=== PATIENT | female | born 1995 | race Caucasian/White ===

== ENCOUNTER 2016-11-23 11:42 | Inpatient (IN) | payer OTHER ==
[~2016-11-23 11:42] MED LIST: HYDR-3133 PO; LEXA20TA PO; LORA.5 PO
[2016-11-23 12:20] VITALS: BP 136/83; PULSE 79; RESP 18; TEMP 98; O2SAT 98
[2016-11-23 14:09] LABS: AUTOMATED NEUTROPHIL # 3.5 TH/MM3 (1.8-7.7); BASOPHIL % 0.5 % (0.0-2.0); EOSINOPHIL % 0.5 % (0.0-4.0); HEMATOCRIT 36.8 % (35.0-46.0); HEMO FLAGS DIFF FINAL; LYMPHOCYTE # 2.9 TH/MM3 (1.0-4.8); MEAN CELL VOLUME 91.1 FL (80.0-100.0); MEAN CORPUSCULAR HEMOGLOBIN 31.1 PG (27.0-34.0); MEAN CORPUSCULAR HGB CONC 34.1 % (32.0-36.0); MONO % 11.2 % (0.0-8.0); NEUT % 47.8 % (16.0-70.0); PLATELET COUNT 173 TH/MM3 (150-450); RED BLOOD COUNT 4.04 MIL/MM3 (4.00-5.30); RED CELL DISTRIBUTION WIDTH 12.9 % (11.6-17.2); WHITE BLOOD COUNT 7.3 TH/MM3 (4.0-11.0)
[2016-11-23 14:14] LABS: AMPHETAMINE, URINE NEG (NEG); BARBITURATES, URINE NEG (NEG); COCAINE, URINE NEG (NEG)
[2016-11-23 14:21] VITALS: BP 130/80; PULSE 75; RESP 18; O2SAT 100
[2016-11-23 14:24] LABS: ANION GAP 6 MEQ/L (5-15); BICARBONATE 27.6 MEQ/L (21.0-32.0); BLOOD UREA NITROGEN 12 MG/DL (7-18); CHLORIDE 104 MEQ/L (98-107); GLOMERULAR FILTRATION RATE 112 ML/MIN (>89); POTASSIUM 3.6 MEQ/L (3.5-5.1); SODIUM (NA) 138 MEQ/L (136-145)
[2016-11-23 16:50] LABS: ACETAMINOPHEN LESS THAN 2.0 MCG/ML (10.0-30.0)
--- NOTE | 2016-11-23 17:06 | PD ---
HPI Chief Complaint: Psychiatric Symptoms Time Seen by Provider: 16:15 Travel History International Travel<30 days: No Contact w/Intl Traveler<30days: No Traveled to known affect area: No History of Present Illness HPI Patient is a 20-year-old female with a history of bipolar disorder brought in on a [place] act. Per the report she is been having some suicidal thoughts the last 2-3 days. These are brief and fleeting. She denies any plan or attempts. She denies any visual or auditory hallucinations. She has had these needs for sleep over the last 2-3 days consistent with prior episodes of ivji. Depression is also somewhat worsened. She denies any acute medical problems this time. She denies alcohol tobacco and illicit drug use. She denies current . PFSH Past Medical History Arthritis: No Asthma: No Autoimmune Disease: No Bipolar Disorder: Yes Anxiety: Yes Depression: No Heart Rhythm Problems: No Cancer: No Cardiovascular Problems: No High Cholesterol: No Chemotherapy: No Chest Pain: No Congestive Heart Failure: No COPD: No Cerebrovascular Accident: No Diabetes: No Diminished Hearing: No Endocrine: No GERD: No Genitourinary: No Headaches: Yes (HX OF MIGRAINES) Hiatal Hernia: No Immune Disorder: No Kidney Stones: No Musculoskeletal: No Neurologic: No Psychiatric: No Reproductive: No Respiratory: No Immunizations Current: Yes Migraines: Yes Radiation Therapy: No Renal Failure: No Seizures: No Sickle Cell Disease: No Sleep Apnea: No Thyroid Disease: No Ulcer: No ?: Unknown Menopausal: Yes : 0 Past Surgical History Abdominal Surgery: No AICD: No Arteriovenous Shunt: No Cardiac Surgery: No Ear Surgery: No Endocrine Surgery: No Eye Surgery: No Genitourinary Surgery: No Gynecologic Surgery: No Insulin Pump: No Joint Replacement: No Oral Surgery: No Pacemaker: No Thoracic Surgery: No Social History Alcohol Use: Yes (occasionally) Tobacco Use: No Substance Use: No Allergies-Medications (Allergen,Severity, Reaction): Coded Allergies: No Known Allergies (Unverified , 05/09/16) Reported Meds & Prescriptions Reported Meds & Active Scripts Active Lorazepam 0.5 Mg Tab 0.5 Mg PO HS Reported Atarax (Hydroxyzine HCl) 25 Mg Tab 25 Mg PO DAILY PRN Lexapro (Escitalopram Oxalate) 20 Mg Tab 20 Mg PO DAILY Review of Systems General / Constitutional: No: Fever HENT: No: Headaches Cardiovascular: No: Chest Pain or Discomfort Respiratory: No: Shortness of Breath Gastrointestinal: No: Abdominal Pain Neurologic: No: Focal Abnormalities Psychiatric: Positive: Anxiety, Depression, Suicidal Ideations, Mood Disorder, No: Disorder of Thought, Substance Abuse, Homicidal Ideation Physical Exam Narrative GENERAL: Well-developed and well-nourished adult female in no acute distress. SKIN: Warm and dry. Good turgor without tenting. HEAD: Normocephalic and atraumatic. EYES: PERRL bilaterally, 5mm. EOMI bilaterally. No injection or icterus present. No proptosis. Lids without edema or erythema. ENT: Buccal mucosa pink and moist. Oropharynx free of erythema, tonsillar hypertrophy, masses, swelling, asymmetry and exudates. Uvula midline and airway patent. NECK: Supple, no midline tenderness, crepitus or step-offs. Trachea midline, no JVD. No cervical or facial lymphadenopathy. CARDIOVASCULAR: Regular rate and rhythm without murmurs, rubs, clicks or gallops. Radial and posterior tibial pulses 2+ bilaterally. No pedal edema. RESPIRATORY: Clear to auscultation bilaterally with symmetrical rise and fall, no distress or use of accessory muscles. MUSCULOSKELETAL: No gait disturbances. Patient freely moving all four extremities spontaneously. Extremities without clubbing, cyanosis, or edema. No obvious deformities. NEUROLOGIC: CN II-XII grossly intact. Awake and alert. Motor grossly within normal limits. Normal speech. PSYCHIATRIC: Flat affect. Data Data Last Documented VS Vital Signs Date Time Temp Pulse Resp B/P Pulse Ox O2 Delivery O2 Flow Rate FiO2 11/23/16 14:21 75 18 130/80 100 Room Air 11/23/16 12:20 98.0 Orders Diet Regular Basic (11/23/16 Lunch) Diet Regular Basic (11/23/16 Dinner) Psych Screen (11/23/16 12:58) Complete Blood Count With Diff (11/23/16 13:55) Basic Metabolic Panel (Bmp) (11/23/16 13:55) Drug Screen, Random Urine (11/23/16 13:55) Ed Urine Pregnancytest Poc (11/23/16 13:55) Alcohol (Ethanol) (11/23/16 13:55) Salicylates (Aspirin) (11/23/16 15:57) Tylenol (Acetaminophen) (11/23/16 15:57) Valproic Acid (Depakene) (11/23/16 15:57) Beta Hcg (Quant/Titer) (11/23/16 17:16) Labs Laboratory Tests Test 11/23/16 13:15 White Blood Count 7.3 TH/MM3 Red Blood Count 4.04 MIL/MM3 Hemoglobin 12.6 GM/DL Hematocrit 36.8 % Mean Corpuscular Volume 91.1 FL Mean Corpuscular Hemoglobin 31.1 PG Mean Corpuscular Hemoglobin 34.1 % Concent Red Cell Distribution Width 12.9 % Platelet Count 173 TH/MM3 Mean Platelet Volume 8.5 FL Neutrophils (%) (Auto) 47.8 % Lymphocytes (%) (Auto) 40.0 % Monocytes (%) (Auto) 11.2 % Eosinophils (%) (Auto) 0.5 % Basophils (%) (Auto) 0.5 % Neutrophils # (Auto) 3.5 TH/MM3 Lymphocytes # (Auto) 2.9 TH/MM3 Monocytes # (Auto) 0.8 TH/MM3 Eosinophils # (Auto) 0.0 TH/MM3 Basophils # (Auto) 0.0 TH/MM3 CBC Comment DIFF FINAL Differential Comment Sodium Level 138 MEQ/L Potassium Level 3.6 MEQ/L Chloride Level 104 MEQ/L Carbon Dioxide Level 27.6 MEQ/L Anion Gap 6 MEQ/L Blood Urea Nitrogen 12 MG/DL Creatinine 0.66 MG/DL Estimat Glomerular Filtration 112 ML/MIN Rate Random Glucose 102 MG/DL Calcium Level 9.0 MG/DL Human Chorionic Gonadotropin, LESS THAN 1 Quant MIU/ML Salicylates Level LESS THAN 1.7 MG/DL Urine Opiates Screen NEG Acetaminophen Level LESS THAN 2.0 MCG/ML Urine Barbiturates Screen NEG Valproic Acid (Depakene) Level 114 MCG/ML Urine Amphetamines Screen NEG Urine Benzodiazepines Screen NEG Urine Cocaine Screen NEG Urine Cannabinoids Screen NEG Ethyl Alcohol Level LESS THAN 3 MG/DL MDM Medical Decision Making Medical Screen Exam Complete: Yes Emergency Medical Condition: Yes Interpretation(s) Laboratory Tests Test 11/23/16 13:15 White Blood Count 7.3 TH/MM3 (4.0-11.0) Red Blood Count 4.04 MIL/MM3 (4.00-5.30) Hemoglobin 12.6 GM/DL (11.6-15.3) Hematocrit 36.8 % (35.0-46.0) Mean Corpuscular Volume 91.1 FL (80.0-100.0) Mean Corpuscular Hemoglobin 31.1 PG (27.0-34.0) Mean Corpuscular Hemoglobin 34.1 % Concent (32.0-36.0) Red Cell Distribution Width 12.9 % (11.6-17.2) Platelet Count 173 TH/MM3 (150-450) Mean Platelet Volume 8.5 FL (7.0-11.0) Neutrophils (%) (Auto) 47.8 % (16.0-70.0) Lymphocytes (%) (Auto) 40.0 % (9.0-44.0) Monocytes (%) (Auto) 11.2 % (0.0-8.0) Eosinophils (%) (Auto) 0.5 % (0.0-4.0) Basophils (%) (Auto) 0.5 % (0.0-2.0) Neutrophils # (Auto) 3.5 TH/MM3 (1.8-7.7) Lymphocytes # (Auto) 2.9 TH/MM3 (1.0-4.8) Monocytes # (Auto) 0.8 TH/MM3 (0-0.9) Eosinophils # (Auto) 0.0 TH/MM3 (0-0.4) Basophils # (Auto) 0.0 TH/MM3 (0-0.2) CBC Comment DIFF FINAL Differential Comment Sodium Level 138 MEQ/L (136-145) Potassium Level 3.6 MEQ/L (3.5-5.1) Chloride Level 104 MEQ/L (98-107) Carbon Dioxide Level 27.6 MEQ/L (21.0-32.0) Anion Gap 6 MEQ/L (5-15) Blood Urea Nitrogen 12 MG/DL (7-18) Creatinine 0.66 MG/DL (0.50-1.00) Estimat Glomerular Filtration 112 ML/MIN Rate (>89) Random Glucose 102 MG/DL (74-106) Calcium Level 9.0 MG/DL (8.5-10.1) Human Chorionic Gonadotropin, LESS THAN 1 Quant MIU/ML (0-5) Salicylates Level LESS THAN 1.7 MG/DL (2.8-20.0) Urine Opiates Screen NEG (NEG) Acetaminophen Level LESS THAN 2.0 MCG/ML (10.0-30.0) Urine Barbiturates Screen NEG (NEG) Valproic Acid (Depakene) Level 114 MCG/ML (50-100) Urine Amphetamines Screen NEG (NEG) Urine Benzodiazepines Screen NEG (NEG) Urine Cocaine Screen NEG (NEG) Urine Cannabinoids Screen NEG (NEG) Ethyl Alcohol Level LESS THAN 3 MG/DL (0-5) Differential Diagnosis SI versus depression versus anxiety versus bipolar disorder versus schizophrenia versus substance abuse versus mood disorder versus personality disorder versus adjustment disorder Narrative Course Patient is a 20-year-old female with a history of bipolar disorder brought in on a [place] act for suicidal ideations without attempt. Her vital signs are normal and she complains of no medical problems at this time. Exam unremarkable. CBC and metabolic panel unremarkable. Valproic acid acid 114 which is slightly elevated however is within the normal limits for treatments of viji. Toxic levels are not until 175. The rest of her toxicology is negative pending UDS and UPT. HCG less than 1. Patient is medically cleared to proceed with psych evaluation. Diagnosis Primary Impression: Suicidal ideations Additional Impression: Bipolar disorder (manic depression) Qualified Code: F31.63 - Bipolar disorder, current episode mixed, severe, without psychotic features Condition: Stable Jakob Shahid III Nov 23, 2016 17:06
[2016-11-23 18:12] LABS: BETA HCG QUANT LESS THAN 1 MIU/ML (0-5)
[2016-11-23 18:23] VITALS: BP 157/93; PULSE 66; RESP 20; O2SAT 100
[2016-11-23] MEDS ORDERED: PROZ40CA PO (18:44)
[2016-11-23] MEDS ORDERED: AMLO2.5T PO (18:44)
[2016-11-23] MEDS ORDERED: DIVA250ER PO (18:44)
[2016-11-23] MEDS ORDERED: PRAZ5 PO (18:44)
[2016-11-23] MEDS ORDERED: VIST50CA PO (18:44)
[2016-11-23 22:22] VITALS: BP 143/90; PULSE 74; RESP 18; O2SAT 99
[2016-11-24] MEDS ORDERED: PILL SPLITTER OTHER PRN (02:15)
[2016-11-24 02:39] VITALS: BP 147/84; PULSE 74; RESP 16; O2SAT 98
[2016-11-24] MEDS ORDERED: LORazepam 1 MG TAB PO PRN (03:00)
[2016-11-24] MEDS ORDERED: MAGNESIUM HYDROXIDE SUSP 30 ML CUP PO PRN (03:00)
[2016-11-24] MEDS ORDERED: ACETAMINOPHEN 325 MG TAB PO PRN (03:00)
[2016-11-24] MEDS ORDERED: ALUMINUM/MAGNESIUM/SIMETH 30 ML CUP PO PRN (03:00)
[2016-11-24] MEDS: TEMAZEPAM 15 MG CAP PO PRN ×2 (03:42→21:02)
[2016-11-24 03:57] VITALS: BP 144/85; PULSE 71; RESP 16; TEMP 98.3; O2SAT 98
[2016-11-24 06:10] VITALS: BP 121/72; PULSE 63; RESP 16; TEMP 97.6
[2016-11-24 06:51] VITALS: BP 121/72; PULSE 63; RESP 16; TEMP 97.6
[2016-11-24] MEDS: FLUoxetine HCL 20 MG CAP PO SCH (09:44)
[2016-11-24] MEDS: amLODIPine BESYLATE 5 MG TAB PO SCH (09:44)
[2016-11-24] MEDS: hydrOXYzine PAMOATE 25 MG CAP PO SCH ×2 (09:44→21:02)
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
[2016-11-24 19:35] VITALS: BP 151/93; PULSE 67; RESP 18; TEMP 98.2; O2SAT 98
[2016-11-24] MEDS: PRAZOSIN HCL 5 MG CAP PO SCH (21:00)
[2016-11-24] MEDS: DIVALPROEX SODIUM E.R. 500 MG TAB PO SCH (21:01)
[2016-11-24] MEDS: LORazepam 2 MG/ML VIAL IM PRN (23:37)
[2016-11-25 06:16] VITALS: BP 130/75; PULSE 73; RESP 18; TEMP 97; O2SAT 98
[2016-11-25 06:55] LABS: ANION GAP 7 MEQ/L (5-15); BICARBONATE 26.7 MEQ/L (21.0-32.0); BLOOD UREA NITROGEN 11 MG/DL (7-18); CHLORIDE 105 MEQ/L (98-107); GLOMERULAR FILTRATION RATE 114 ML/MIN (>89); POTASSIUM 3.8 MEQ/L (3.5-5.1); SODIUM (NA) 139 MEQ/L (136-145)
[2016-11-25 06:57] LABS: HDL CHOLESTEROL 56.7 MG/DL (40.0-60.0); LDL CHOLESTEROL 92 MG/DL (0-99)
[2016-11-25] MEDS: amLODIPine BESYLATE 5 MG TAB PO SCH (08:12)
[2016-11-25] MEDS: hydrOXYzine PAMOATE 25 MG CAP PO SCH ×2 (08:12→20:11)
[2016-11-25] MEDS: FLUoxetine HCL 20 MG CAP PO SCH (08:12)
--- NOTE | 2016-11-25 16:27 | PD.CONS ---
HPI Service [facility] Hospitalists Consult Requested By Dr. Jonathan Bartholomew Reason for Consult Nausea/vomiting Primary Care Physician Yola Plunkett MD Diagnoses: History of Present Illness Ms. Lanier is a 20 y/o WF with borderline personality disorder, bipolar 1 disorder, PTSD, migraines and hypertension who was [place] [facility] [place] under a [place] Act for suicidal thoughts for 2-3 days prior to admission. She denies any visual or auditory hallucinations. Pt reports that her depression has been worse lately and she has not been sleeping well. She reports that two days prior to admission she had a few episodes of vomiting. Pt states that she had some vague mid to lower abd cramping associated with the vomiting. Denies any diarrhea at that time. She states that in the past she has had episodic vomiting related to her anxiety. Last night she had three episodes of vomiting and diarrhea. Denies any melena, BRBPR, or hematemesis. She again had some abd cramping/discomfort but this has since resolved. She states that she was given Ativan and went to sleep without any more episodes. Pt has not had any further vomiting or diarrhea today. Denies any dysuria, urinary frequency, hematuria, constipation, reflux or dyspepsia. Pts urine test was negative. Her Valproic acid level was elevated at 114 at admission but this is decreased to normal range. Review of Systems Constitutional: DENIES: Fever, Chills Respiratory: DENIES: Shortness of breath Cardiovascular: DENIES: Chest pain, Palpitations Gastrointestinal: COMPLAINS OF: Diarrhea, Nausea, Vomiting, DENIES: Abdominal pain, Constipation Genitourinary: DENIES: Urgency, Hematuria Psychiatric: COMPLAINS OF: Suicidal Ideation, History of Bipolar Past Family Social History Past Medical History Bipolar disorder PTSD Migraine WHITE HTN Past Surgical History None reported Reported Medications Amlodipine 2.5 Mg PO DAILY (Just started on 11/19/16) Minipress 10 Mg PO HS Depakote ER 1,000 Mg PO HS Vistaril 25 Mg PO BID PRN Anxiety Prozac 40 Mg PO DAILY Allergies: Coded Allergies: No Known Allergies (Unverified , 05/09/16) Family History Father with hx of Crohn's disease and lung cancer Social History Pt denies any tobacco or alcohol use She occasionally smokes marijuana Pt is , was in an arranged marriage for 3 years, 12/2015 Pt is [employer] Pt is from [place], moved to [place] last year and is living with a friend and their family. Physical Exam Vital Signs Vital Signs Date Time Temp Pulse Resp B/P Pulse Ox O2 Delivery O2 Flow Rate FiO2 11/25/16 06:16 97.0 73 18 130/75 98 11/24/16 19:35 98.2 67 18 151/93 98 Physical Exam GENERAL: This is a well-nourished, well-developed patient, in no apparent distress. HEENT: Atraumatic. Normocephalic. No temporal or scalp tenderness. No scleral icterus. Airway patent. NECK: Trachea midline, supple, nontender. CARDIO: Regular. RESP: CTA bilaterally. No wheezes, rales, or rhonchi. ABD: +BS, soft, vague diffuse abd discomfort, nondistended. Negative Greene sign EXT: Extremities without clubbing, cyanosis, or edema. NEURO: Awake and alert. Motor and sensory grossly within normal limits. Normal speech. Laboratory Laboratory Tests Test 11/25/16 06:06 Sodium Level 139 Potassium Level 3.8 Chloride Level 105 Carbon Dioxide Level 26.7 Anion Gap 7 Blood Urea Nitrogen 11 Creatinine 0.65 Estimat Glomerular Filtration 114 Rate Random Glucose 85 Calcium Level 8.6 Triglycerides Level 96 Cholesterol Level 168 LDL Cholesterol 92 HDL Cholesterol 56.7 Cholesterol/HDL Ratio 2.96 Valproic Acid (Depakene) Level 63 Result Diagram: 11/23/16 1315 11/25/16 0606 Assessment and Plan Problem List: (1) Suicidal ideations Status: Acute Plan: - Pt admitted under [place] Act for suicidal ideation - Management per psychiatry (2) Borderline personality disorder Status: Chronic Plan: - management per psychiatry (3) Major depressive disorder Status: Chronic Plan: - management per psychiatry (4) Nausea, vomiting and diarrhea Status: Acute Plan: - Pt had nausea and vomiting x 1 day prior to admission and then had N/V and diarrhea last night. - Etiology unclear, possibly related to anxiety vs. gastroenteritis vs. elevated valproic acid levels vs. other. - Check CBC, CMP, and UA - Zofran PRN (5) HTN (hypertension), benign Status: Chronic Plan: - Home meds continued. Assessment and Plan Patient examined. Assessment and plan formulated with Rox Salinas PA-C. I agree with the above. Rox Salinas Nov 25, 2016 16:27 Calvin Nowak MD Nov 25, 2016 22:05
[2016-11-25] MEDS ORDERED: ONDANSETRON ODT 4 MG TAB PO PRN (17:00)
[2016-11-25 17:11] LABS: HEMOGLOBIN A1a 1.2 %; HEMOGLOBIN A1b 0.9 %; HEMOGLOBIN F 1.6 %; HEMOGLOBIN LA1C 1.7 %; HEMOGLOBIN P3 3.3 %
[2016-11-25 18:00] LABS: AUTOMATED NEUTROPHIL # 3.3 TH/MM3 (1.8-7.7); BASOPHIL # 0.1 TH/MM3 (0-0.2); BASOPHIL % 0.7 % (0.0-2.0); EOSINOPHIL % 0.6 % (0.0-4.0); HEMATOCRIT 37.9 % (35.0-46.0); HEMO FLAGS DIFF FINAL; LYMPH % 45.2 % (9.0-44.0); LYMPHOCYTE # 3.6 TH/MM3 (1.0-4.8); MEAN CORPUSCULAR HEMOGLOBIN 30.7 PG (27.0-34.0); MEAN CORPUSCULAR HGB CONC 33.8 % (32.0-36.0); MONO % 11.5 % (0.0-8.0); PLATELET COUNT 190 TH/MM3 (150-450); RED BLOOD COUNT 4.17 MIL/MM3 (4.00-5.30); RED CELL DISTRIBUTION WIDTH 13.3 % (11.6-17.2); WHITE BLOOD COUNT 7.8 TH/MM3 (4.0-11.0)
[2016-11-25 18:33] VITALS: BP 157/99; PULSE 108; RESP 18; TEMP 97.8; O2SAT 96
[2016-11-25 18:41] LABS: BACTERIA, URINE RARE /hpf; BLOOD, URINE NEG (NEG); COMMENT (UR) CULT NOT INDICATED; CULTURE IF INDICATED CULT NOT INDICATED; GLUCOSE,URINE NEG (NEG); KETONE, URINE NEG (NEG); MUCUS URINE FEW /lpf (OCC); NITRITE,URINE NEG (NEG); PH, URINE 7.5 (5.0-8.5); SQUAMOUS EPITHELIAL CELL URINE <1 /hpf (0-5); URINE COLOR YELLOW (YELLW/STRAW)
[2016-11-25] MEDS: DIVALPROEX SODIUM E.R. 500 MG TAB PO SCH (20:10)
[2016-11-25] MEDS: PRAZOSIN HCL 5 MG CAP PO SCH (20:10)
[2016-11-25] MEDS: risperiDONE 0.25 MG TAB PO SCH (20:11)
[2016-11-26 06:14] VITALS: BP 102/65; PULSE 62; RESP 16; TEMP 97.9
[2016-11-26 08:11] LABS: ALKALINE PHOSPHATASE 42 U/L (45-117); ALT (GPT) 24 U/L (10-53); ANION GAP 10 MEQ/L (5-15); AST (GOT) 13 U/L (15-37); BICARBONATE 25.7 MEQ/L (21.0-32.0); BLOOD UREA NITROGEN 10 MG/DL (7-18); CHLORIDE 104 MEQ/L (98-107); GLOMERULAR FILTRATION RATE 125 ML/MIN (>89); POTASSIUM 3.7 MEQ/L (3.5-5.1); SODIUM (NA) 140 MEQ/L (136-145); TOTAL BILIRUBIN ADULT 0.3 MG/DL (0.2-1.0)
[2016-11-26] MEDS: FLUoxetine HCL 20 MG CAP PO SCH (09:29)
[2016-11-26] MEDS: amLODIPine BESYLATE 5 MG TAB PO SCH (09:30)
[2016-11-26] MEDS: hydrOXYzine PAMOATE 25 MG CAP PO SCH ×2 (09:30→21:32)
[2016-11-26 19:11] VITALS: BP 118/65; PULSE 80; RESP 18; TEMP 97.1; O2SAT 95
[2016-11-26] MEDS: PRAZOSIN HCL 5 MG CAP PO SCH (21:32)
[2016-11-26] MEDS: risperiDONE 0.25 MG TAB PO SCH (21:32)
[2016-11-26] MEDS: DIVALPROEX SODIUM E.R. 500 MG TAB PO SCH (21:32)
[2016-11-26] MEDS: LORazepam 2 MG/ML VIAL IM PRN (22:39)
[2016-11-27 06:12] VITALS: BP 109/62; PULSE 64; RESP 17; TEMP 97.6
[2016-11-27] MEDS: amLODIPine BESYLATE 5 MG TAB PO SCH (08:59)
[2016-11-27] MEDS: hydrOXYzine PAMOATE 25 MG CAP PO SCH ×2 (08:59→20:39)
[2016-11-27] MEDS: FLUoxetine HCL 20 MG CAP PO SCH (08:59)
[2016-11-27 19:36] VITALS: BP 119/74; PULSE 77; RESP 18; TEMP 98.3; O2SAT 97
[2016-11-27] MEDS: DIVALPROEX SODIUM E.R. 500 MG TAB PO SCH (20:38)
[2016-11-27] MEDS: risperiDONE 0.25 MG TAB PO SCH (20:38)
[2016-11-27] MEDS: PRAZOSIN HCL 5 MG CAP PO SCH (20:38)
[2016-11-28 05:15] VITALS: BP 108/59; PULSE 72; RESP 16; TEMP 97.7
[2016-11-28] MEDS: amLODIPine BESYLATE 5 MG TAB PO SCH (09:00)
[2016-11-28] MEDS: hydrOXYzine PAMOATE 25 MG CAP PO SCH (09:08)
[2016-11-28] MEDS: FLUoxetine HCL 20 MG CAP PO SCH (09:08)
[2016-11-28] MEDS ORDERED: DEPA500T3 PO (15:55)
[2016-11-28] MEDS ORDERED: RISP.25 PO (15:55)
[2016-11-28] MEDS ORDERED: AMLO5 PO (15:55)
[2016-11-28] MEDS ORDERED: HYDR1CAP30 PO (15:55)
[2016-11-28] MEDS ORDERED: FLUO20CA4 PO (15:55)
[2016-11-28] MEDS ORDERED: PRAZ5 PO (15:55)
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
[2016-11-28 19:01] VITALS: BP 140/80; PULSE 94; RESP 16; O2SAT 96
== END 2016-11-28 19:20 | disposition home or self-care (01) | DRG 885 ==
LOC: NEPJ 11:42 → NEDA 11-24 01:52 → H260 11-24 03:23
PROVIDERS: ADMIT Psychiatry & Neurology Psychiatry; ATTEND Psychiatry & Neurology Psychiatry
DX: F31.9 Bipolar disorder, unspecified (principal); R45.851 Suicidal ideations; I10 Essential (primary) hypertension; F41.9 Anxiety disorder, unspecified; F43.10 Post-traumatic stress disorder, unspecified; F43.23 Adjustment disorder with mixed anxiety and depressed mood; F60.3 Borderline personality disorder; F12.90 Cannabis use, unspecified, uncomplicated
CPT/HCPCS: 80048; 80053; 80061; 80164; 80307; 80320; 80329; 81001; 83036; 84702; 84703; 85025; 99285; G0480; J2060; Q0177